=== PATIENT | male | born 1965 | race Caucasian/White ===

== ENCOUNTER 2017-06-27 19:41 | Inpatient (IN) | END 2017-07-16 18:50 | DRG 683 ==

== ENCOUNTER 2018-03-25 13:57 | Observation (INO) | payer BC, MEDICAID ==
[~2018-03-25] VITALS: Ht 162.6 cm; Wt 112.5 kg
[~2018-03-25 13:57] MED LIST: AMLO-145 PO; ASPI-831 PO; DEXL60CA2 PO; DICL100G33 TP; LAMO200T4 PO; LEVO750T25 PO; NOVO3I SC; OXYC-481 PO; PREG150C PO; SIME80TA60 PO; VENL25TA PO
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
[2018-03-25] MEDS ORDERED: ALBU2.5V3 NEB (14:58)
[2018-03-25] MEDS ORDERED: BISA5TAB6 PO (14:59)
[2018-03-25] MEDS ORDERED: VENL75TA2 PO (14:59)
[2018-03-25] MEDS ORDERED: FAMO20TA18 PO (14:59)
[2018-03-25] MEDS ORDERED: FER325 PO (15:00)
[2018-03-25] MEDS ORDERED: SITA100T11 PO (15:00)
[2018-03-25] MEDS ORDERED: MINE133E23 PR (15:00)
[2018-03-25] MEDS ORDERED: EMPA25TA PO (15:01)
[2018-03-25] MEDS ORDERED: ALBUTEROL 0.5% (NEB) 2.5 MG/0.5 ML AMP INH STA (17:08)
[2018-03-25] MEDS ORDERED: NA POLYST SULFON 15 GM/60 ML BTL PO ONE (17:30)
[2018-03-25] MEDS ORDERED: kadian PO (18:21)
[2018-03-25] MEDS ORDERED: PREG150C PO (18:22)
[2018-03-25] MEDS ORDERED: LAMO100T PO (18:22)
[2018-03-25] MEDS ORDERED: POLY17PO6 PO (18:23)
[2018-03-25] MEDS ORDERED: MAGN400O19 PO (18:23)
[2018-03-25] MEDS ORDERED: SVL800C PO (18:24)
[2018-03-25] MEDS ORDERED: HYDR-4011 PO (18:24)
[2018-03-25] MEDS ORDERED: ACET325T33 PO (18:25)
[2018-03-25] MEDS ORDERED: TRAZ-111 PO (18:25)
[2018-03-25] MEDS ORDERED: ACET-141 PO (18:26)
[2018-03-25] MEDS ORDERED: ASPIRIN 81 MG TAB PO ONE (19:00)
[2018-03-25] MEDS ORDERED: ONDANSETRON 4 MG INJ IV PRN (20:30)
[2018-03-25] MEDS ORDERED: BISACODYL 10 MG SUPP PR PRN (20:30)
[2018-03-25] MEDS ORDERED: NACL 0.9% 3 ML SYG IV SCH (20:30)
[2018-03-25] MEDS ORDERED: ACETAMINOPHEN 325 MG TAB PO PRN (20:30)
[2018-03-25] MEDS ORDERED: DOCUSATE SODIUM 100 MG CAP PO PRN (20:30)
[2018-03-25] MEDS ORDERED: MAGNESIUM HYDROXIDE 30ML CUP PO PRN (20:30)
[2018-03-25] MEDS ORDERED: NITROGLYCERIN (SL) 0.4 MG TAB SL PRN (20:30)
[2018-03-25] MEDS: SOD CHLORIDE 0.9% 1,000 ML IV SCH (20:51)
[2018-03-25] MEDS ORDERED: traZODone 50 MG TAB PO SCH (21:00)
[2018-03-25 21:21] VITALS: PULSE 84
[2018-03-25 21:30] VITALS: Ht 162.6 cm; Wt 112.5 kg
[2018-03-25 21:31] VITALS: BP 117/65; PULSE 76; RESP 22
[2018-03-25] MEDS: HEPARIN 5,000 UNIT/1 ML VIAL SC SCH (22:04)
[2018-03-25] MEDS: LAMOTRIGINE 100 MG TAB PO SCH (23:32)
[2018-03-25] MEDS: HYDROCODONE/APAP (5/325) TAB PO PRN (23:36)
[2018-03-25] MEDS: PREGABALIN 75 MG CAP PO SCH (23:50)
[2018-03-25 23:59] VITALS: BP 112/58; PULSE 78; RESP 19
[2018-03-26] VITALS (8 sets, daily range): BP systolic 121–147; BP diastolic 57–68; PULSE 64–90; RESP 16–19
[2018-03-26] MEDS: SOD CHLORIDE 0.9% 1,000 ML IV SCH (06:10)
[2018-03-26] MEDS ORDERED: SEVELAMER 800 MG TAB PO SCH (07:55)
[2018-03-26] MEDS ORDERED: POLYETHYLENE GLYCOL 17 GM PACKET PO SCH (09:00)
[2018-03-26] MEDS ORDERED: ASPIRIN 81 MG TAB PO SCH (09:00)
[2018-03-26] MEDS: LAMOTRIGINE 100 MG TAB PO SCH (09:19)
[2018-03-26] MEDS: PREGABALIN 75 MG CAP PO SCH (09:19)
[2018-03-26] MEDS: HEPARIN 5,000 UNIT/1 ML VIAL SC SCH (09:23)
[2018-03-26] MEDS ORDERED: REGADENOSON 0.4 MG/5 ML SYG ONE (11:41)
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
--- NOTE | 2018-03-26 14:30 | PDOCDIS ---
Discharge Instructions CONDITION [id number] Patient Condition: Aarbw3d Stable HOME CARE INSTRUCTIONS: [id number] Diet Instructions: [id number] Regular ACTIVITY: [id number] Activity Restrictions: [id number] Slowly Increase Activity FOLLOW UP/APPOINTMENTS Follow-up Plan Discharge back to [facility] facility, patient under long term care. Follow-up with primary care physician within 1-2 weeks Received with outpatient orthopedic surgery evaluation, second opinion, regarding shoulder repair surgery Agree with possible outpatient psychiatry evaluation regarding major depressive disorder. JESSICA ANDERSON Mar 26, 2018 14:30
[2018-03-26] MEDS: HYDROCODONE/APAP (5/325) TAB PO PRN (17:43)
[2018-03-26] MEDS ORDERED: RENAGEL PO SCH (17:55)
[2018-03-27] MEDS ORDERED: INFLUENZA VIRUS VACCINE 0.5 ML (DISPENSING) IM* ONE (10:00)
--- NOTE | 2018-03-27 15:22 | DS ---
DATE OF ADMISSION: 03/25/2018 DATE OF DISCHARGE: 03/26/2018 ADMITTING PHYSICIAN: Jessica Anderson MD DISCHARGING PHYSICIAN: Jessica Anderson MD CONSULTANTS DURING THIS ADMISSION: Dr. Man Lemus from cardiology. CHIEF COMPLAINT ON ADMISSION: Multiple complaints including upper extremity weakness, neck pain, iman k pain, shoulder pain. BRIEF HISTORY OF PRESENT ILLNESS: This is a 52-year-old male with hypertension with chronic kidney d isease stage IV and chronic bilateral shoulder pain. He is also status post bilateral BKA, who prese nted to the Emergency Department from his care home facility where he resides as a group home wi th complaint of right upper extremity weakness and episodes of dropping objects and concerns for poss ible acute CVA. The patient was evaluated in the ER as his symptoms had been going on for a week. C AT scan was negative. It was unlikely to be acute CVA. The plan originally was to discharge the pat ient back to nursing facility, then he started complaining of chest pain, substernal. Therefore, he was admitted for rule out ACS and further evaluation. HOSPITAL COURSE: The patient was admitted to a telemetry bed, he was ruled out for acute coronary sy ndrome and subsequently had a stress test which was negative for any reversible ischemia and therefor e considered negative. He was maintained on baby aspirin. He was complaining of neck pain and was c oncerned about the headaches that he was having even if reassured that his CAT scan was negative, he was still very insistent on having the study of his neck. MRI of the C-spine was done which did not show any acute findings. The patient was discharged to care home facility in stable condition and he is to proceed with his plans for second opinion from orthopedic surgery regarding shoulder eliel dasia. DISPOSITION: Discharge back to care home facility. DISCHARGE CONDITION: Stable. DISCHARGE DIET: Regular diet. DISCHARGE ACTIVITY: Resume care home facility activity. Of note, the patient is bilateral BKA . DISCHARGE DIAGNOSES: 1. Atypical chest pain. 2. Chronic shoulder pain. 3. Upper extremity weakness that may be related to his chronic shoulder issues. 4. Major depressive disorder. 5. Status post bilateral below the knee amputation. 6. Anemia of chronic disease. 7. Patient with chronic kidney disease, stage IV. 8. Hyperkalemia, resolved. DISCHARGE MEDICATIONS: Patient was maintained on his previous outpatient medications includin. Tylenol 650 mg p.o. q.4h. p.r.n. mild pain. 2. Tylenol extra strength q.4h. p.r.n. mild to moderate pain. 3. [place] 5/325 one tab p.o. every 6 hours as needed for pain. 4. Lamotrigine 100 mg p.o. b.i.d. 4. Lyrica 150 mg p.o. b.i.d. 5. Trazodone 50 mg p.o. at bedtime. 6. Renagel 400 mg p.o. with meals. 7. Milk of magnesia 30 mL p.o. daily. 8. MiraLax 17 grams p.o. daily and also aspirin 81 mg p.o. daily. Dictated By: JESSICA ANDERSON MD NK/NTS Conf#: [id number] DID#: [id number] CC: JESSICA ANDERSON MD;*End*
--- NOTE | 2018-03-27 22:00 | RADRPT ---
Echocardiogram Report Patient Name: SHERIF RAMIRES Gender: Male Date: 1965 Study Date: 26-Mar-2018 Retail Experience Specialist: TB Location: 504 Ref. Physician: TORY ANDERSON Quality: Adequate Procedures: Transthoracic echocardiogram with complete 2D, M-Mode, and doppler examination. Indications: Chest Pain. 2D/M Mode Doppler Measurement Value Normal Ranges Measurement Value Normal Ranges LVIDd 2D 5.2 3.5 - 5.6 cm AV Mean Ok 0.8 m/sec LVIDs 2D 3.7 2.1 - 4.1 cm AV Mean PG 3.0 mmHg LVPWd 2D 0.9 0.6 - 1.1 cm AV Peak Ok 1.1 m/sec IVSd 2D 1.0 0.6 - 1.1 cm AV Peak PG 5.0 mmHg AoR Diam 2D 3.3 2.0 - 3.7 cm AV VTI 27.6 cm LA/Ao 2D 1 0 - 1 LVOT Mean Ok 0.6 m/sec EF 2D 57.0 50.0 - 65.0 % LVOT Mean PG 2.0 mmHg LA Dimen 2D 4.2 2.3 - 4.0 cm LVOT Peak Ok 1.0 m/sec IVC Diam 1.1 1.2 - 2.0 LVOT Peak PG 4.0 mmHg MV E Peak Ok 1.0 m/sec MV A Peak Ok 0.8 m/sec MV E/A 1.3 MV PHT 59.0 msec MV Decel Time 201 msec MV Decel [place] 5 MV E/A 1.3 MV PHT 59.0 msec MVA PHT 3.7 cm2 TAPSE 3.7 cm TR Peak Ok 2.0 m/sec TR Peak PG 16.0 mmHg RVSP 19.0 mmHg RA Pressure 3.0 Findings Left Ventricle: Normal left ventricular systolic function. Normal left ventricular cavity size. Normal left ventricular wall thickness. Ejection fraction is visually estimated at 55 %. Right Ventricle: Normal right ventricular size. Normal right ventricular systolic function. Left Atrium: The left atrium is normal in size. Right Atrium: The right atrium is normal in size. Mitral Valve: Normal appearance and function of the mitral valve with trace physiologic regurgitation. Aortic Valve: Normal appearance of the aortic valve. No significant aortic stenosis or insufficiency. Tricuspid Valve: Normal appearance and function of the tricuspid valve with trace physiologic regurgitation. Estimated peak PA systolic pressure 19 mmHg. Pulmonic Valve: Normal pulmonic valve appearance. Pericardium: Normal pericardium with no significant pericardial effusion. Aorta: Normal aortic root. IVC: Normal size and normal respiratory collapse consistent with normal right atrial pressure. Conclusions Normal left ventricular systolic function. Normal left ventricular cavity size. Normal left ventricular wall thickness. Ejection fraction is visually estimated at 55 %. Normal right ventricular size. Normal right ventricular systolic function. The left atrium is normal in size. The right atrium is normal in size. No significant valvular stenosis or regurgitation seen. Normal pericardium with no significant pericardial effusion. Electronically Signed By: Man Lemus 27-Mar-2018 21:59:41 -0800 Patient Name: SHERIF RAMIRES Study Date: 26-Mar-2018 [id number]
== END 2018-03-26 18:15 ==
LOC: E/R 13:57 → TEL 18:58 → EDBEDREQ 19:09
PROVIDERS: ADMIT Internal Medicine; ATTEND Internal Medicine
DX: R07.89 Other chest pain (principal); I12.9 Hypertensive chronic kidney disease with stage 1 through stage 4 chronic kidney disease, or unspecified chronic kidney disease; E11.22 Type 2 diabetes mellitus with diabetic chronic kidney disease; N18.4 Chronic kidney disease, stage 4 (severe); N17.9 Acute kidney failure, unspecified; E87.5 Hyperkalemia; R51 Headache; G89.29 Other chronic pain; M25.519 Pain in unspecified shoulder; R53.1 Weakness; F32.9 Major depressive disorder, single episode, unspecified; Z89.512 Acquired absence of left leg below knee; Z89.511 Acquired absence of right leg below knee; D63.8 Anemia in other chronic diseases classified elsewhere; Z79.4 Long term (current) use of insulin; Z79.82 Long term (current) use of aspirin
CPT/HCPCS: 36415; 70450; 71045; 72141; 78452; 80048; 80053; 80061; 82550; 82553; 83690; 83735; 84484; 85025; 85610; 85730; 87081; 93017; 93306; 94664; 99285; A9500; A9505; J1644; J2785; J7030; Z7500; Z7610; G0378